=== PATIENT | male | born 2005 | race Hispanic/Latino ===

== ENCOUNTER 2025-03-05 01:33 | Emergency (ER) | payer SELFPAY ==
[~2025-03-05] VITALS: Ht 162.6 cm; Wt 68.0 kg
[2025-03-05 02:08] LABS: IMMATURE GRANULOCYTE ABSOLUTE 0.03 K/uL (0-1); NUCLEATED RED BLOOD CELLS 0.0 % (0.0-0.19); PLATELET COUNT (AUTO) 326 K/uL (130-400); RED BLOOD CELL COUNT(AUTO) 5.60 MIL/uL (4.50-6.20); RED CELL DISTRIBUTION WIDTH 12.1 % (11.0-15.5); WHITE BLOOD COUNT (AUTO) 7.2 K/uL (4.8-10.8)
[2025-03-05 02:15] LABS: CREATININE 0.9 mg/dL (0.5-1.3); GLOMERULAR FILTR. RATE CALC 126.0 mL/min (>90); GLUCOSE,RANDOM 135.0 mg/dL (70-105); SODIUM SERUM 140.0 mmol/L (136-145); UREA NITROGEN, BLOOD 8.0 mg/dL (7-18)
[2025-03-05 02:20] LABS: CREATINE KINASE, TOTAL 104.0 U/L (21-232)
--- NOTE | 2025-03-05 02:30 | ERN ---
General Chief Complaint: Chest Pain Stated Complaint: COCAINE USE, CHEST PAIN Time Seen by MD: 01:44 History of Present Illness Initial Comments Patient is a 19-year-old male who is a polysubstance abuser who earlier tonight used alcohol THC and cocaine. He is brought to the emergency room by his significant other experiencing some chest pain and decreased mental status. Allergies: Coded Allergies: No Known Allergies (Unverified Allergy, Unknown, 03/05/25) Past Medical History Past Medical History: No Pertinent History Medical History Other: Polysubstance abuse Past Surgical History: None ROS Dictation Review of systems difficult to obtain as patient is somnolent. But his chest pain has resolved by the time I got to see him and he has no other complaints. Including no chest pain and no abdominal pain. Physical Exam General Appearance comment Somnolent Orientation: (+) alert Head/Face Trauma: No Eye: bilateral eye normal inspection, bilateral eye PERRL, bilateral eye EOMI Ear, Nose, Throat: (+) hearing grossly normal, (+) normal ENT inspection Neck: (+) normal inspection, (+) full range of motion Respiratory: (+) chest non-tender, (+) lungs clear, (+) well ventilated Heart: (+) regular Vascular: (+) no edema, (+) normal peripheral pulse Gastrointestinal: (+) soft, (+) non-tender, (+) bowel sound present Gastrointestinal Comment Patient has no abdominal tenderness and no peritoneal signs. Results Laboratory and Microbiology Lab and Micro Result Laboratory Tests Test 03/05/25 01:50 03/05/25 04:17 White Blood Count 7.2 K/uL (4.8-10.8) Red Blood Count 5.60 MIL/uL (4.50-6.20) Hemoglobin 16.1 g/dL (14.0-18.0) Hematocrit 45.0 % (42-54) Mean Corpuscular Volume 80.4 fL (80-100) Mean Corpuscular Hemoglobin 28.8 pg (27.0-33.0) Mean Corpuscular Hemoglobin Concent 35.8 g/dL (32.0-36.0) Red Cell Distribution Width 12.1 % (11.0-15.5) Platelet Count 326 K/uL (130-400) Mean Platelet Volume 9.7 fL (7.5-10.5) Immature Granulocyte % (Auto) 0.4 % (0-1) Neutrophils (%) (Auto) 53.8 % (40.0-77.0) Lymphocytes (%) (Auto) 32.4 % (21.0-51.0) Monocytes (%) (Auto) 7.1 % (3.0-13.0) Eosinophils (%) (Auto) 5.7 % (0.0-8.0) Basophils (%) (Auto) 0.6 % (0.0-5.0) Neutrophils # (Auto) 3.9 K/uL (1.8-7.7) Lymphocytes # (Auto) 2.3 K/uL (1.0-4.8) Monocytes # (Auto) 0.5 K/uL (0.1-1.0) Eosinophils # (Auto) 0.41 K/uL (0.00-0.70) Basophils # (Auto) 0.04 K/uL (0.00-0.20) Absolute Immature Granulocyte (auto 0.03 K/uL (0-1) Nucleated Red Blood Cells 0.0 % (0.0-0.19) Sodium Level 140 mmol/L (136-145) Potassium Level 3.7 mmol/L (3.5-5.1) Chloride Level 104 mmol/L (101-111) Carbon Dioxide Level 28 mmol/L (21-32) Blood Urea Nitrogen 8 mg/dL (7-18) Creatinine 0.9 mg/dL (0.5-1.3) Glomerular Filtration Rate Calc 126 mL/min (>90) Random Glucose 135 mg/dL (70-105) H Total Calcium 8.9 mg/dL (8.5-10.1) Total Creatine Kinase 104 U/L (21-232) Troponin I High Sensitivity < 4 ng/L (4-75) L Serum Alcohol 137 mg/dL (0-10) H Urine Color LIGHT-YELLOW (YELLOW) Urine Appearance CLEAR (CLEAR) Urine pH 5.0 (5.0-8.0) Urine Specific [place] 1.015 (1.001-1.031) Urine Protein NEGATIVE mg/dL (NEGATIVE) Urine Glucose (UA) NEGATIVE mg/dL (NEGATIVE) Urine Ketones NEGATIVE mg/dL (NEGATIVE) Urine Occult Blood NEGATIVE (NEGATIVE) Urine Nitrate NEGATIVE (NEGATIVE) Urine Bilirubin NEGATIVE mg/dL (NEGATIVE) Urine Urobilinogen 0.2 mg/dL (0.2-1.0) Urine Leukocyte Esterase NEGATIVE Mary/uL Urine Opiates Screen NEGATIVE (NEGATIVE) Urine Barbiturates Screen NEGATIVE (NEGATIVE) Urine Phencyclidine Screen NEGATIVE (NEGATIVE) Urine Amphetamines Screen NEGATIVE (NEGATIVE) Urine Benzodiazepines Screen NEGATIVE (NEGATIVE) Urine Cocaine Screen POSITIVE (NEGATIVE) H Urine Marijuana (THC) Screen POSITIVE (NEGATIVE) H MDM Patient's polysubstance abuse. I will get a chemistry panel CBC urine tox screen UA and blood alcohol level. Depending on those results we may need to admit the patient. Patient's laboratory analysis was normal. CBC was normal. Chemistry panel normal except for a glucose of 135. UA negative.. Blood alcohol level 135. Urine tox positive for cocaine marijuana. I talked with the patient's strongly encouraging him to go to meetings and to stop drinking. He states that it always starts with him having a drink and then he starts using other intoxicants. ED Course Orders Procedure Category Date Status Time Vital Signs Per CPOE 03/05/25 Transmitted Routine 01:35 Chest 1vw RAD 03/05/25 Resulted 01:35 12 Lead Ekg Tracing- EKG 03/05/25 Logged Technical 01:35 Oxygen By Nc/Pulse Ox CPOE 03/05/25 Transmitted 01:35 Maintain Iv CPOE 03/05/25 Transmitted 01:35 Iv Insertion CPOE 03/05/25 Transmitted 01:35 Cardiac Monitoring CPOE 03/05/25 Transmitted 01:35 Pulse Oximetry With CPOE 03/05/25 Transmitted Vs And Prn 01:35 Cbc With Differential LAB 03/05/25 Complete 01:35 Activity: Br W/Brp CPOE 03/05/25 Transmitted With Assist 01:35 Creatine Kinase, Total LAB 03/05/25 Complete 01:35 Troponin I High LAB 03/05/25 Complete Sensitivity 01:35 Urinalysis Profile LAB 03/05/25 Complete 01:35 Basic Metabolic Panel LAB 03/05/25 Complete 01:35 Drug Screen Urine LAB 03/05/25 Complete 02:30 Alcohol, Blood LAB 03/05/25 Complete 02:30 Vital Signs Date Time Temp Pulse Resp B/P (MAP) Pulse Ox O2 Delivery O2 Flow Rate FiO2 03/05/25 04:20 98.4 70 15 146/73 95 Room Air* 0 21 03/05/25 01:34 97.5 84 20 139/80 99 Room Air DX & DISP Disposition: Discharge Departure Impression: Primary Impression: Polysubstance abuse Condition: Stable Additional Instructions: Please get help either by attending meetings such as alcoholics anonymous her going to a detoxification center/program. Referrals: NONE (PCP) MAIK PHILLIPS MD Mar 05, 2025 02:30
--- NOTE | 2025-03-05 02:50 | NUR ---
UA CUP PROVIDED
--- NOTE | 2025-03-05 03:14 | NUR ---
PT SITTING IN LOBBY, IN FRONT OF TRIAGE 1 WITH FAMILY, LAUGHING AND INTERATING WELL
--- NOTE | 2025-03-05 03:18 | HMCIMG ---
EXAM: CR Chest, 1 view. CLINICAL HISTORY: Chest pain. COMPARISON: None. FINDINGS: The lungs show no infiltrate or other acute findings. No pleural effusion or pneumothorax. The cardiomediastinal silhouette is within normal limits. No acute osseous abnormality. IMPRESSION: No acute cardiopulmonary pathology is evident. /[place]
--- NOTE | 2025-03-05 04:20 | NUR ---
PT CARE ASSUMED AT THIS TIME
[2025-03-05 04:27] LABS: APPEARANCE,URINE CLEAR (CLEAR); GLUCOSE, URINE (UA) NEGATIVE (NEGATIVE); LEUKOCYTE ESTERASE ,URINE NEGATIVE Leu/uL (NEGATIVE); NITRATE,URINE NEGATIVE (NEGATIVE); OCCULT BLOOD,URINE NEGATIVE (NEGATIVE)
[2025-03-05 04:29] LABS: ADD UA MICROSCOPIC NO
[2025-03-05 04:34] LABS: AMPHET/METH SCREEN,URINE NEGATIVE (NEGATIVE); BARBITURATE SCREEN, URINE NEGATIVE (NEGATIVE); CANNABINOID SCREEN,URINE POSITIVE (NEGATIVE); COCAINE SCREEN,URINE POSITIVE (NEGATIVE)
[2025-03-05 04:53] VITALS: BP 122/71; PULSE 88; RESP 15; TEMP 98.2; O2SAT 98
--- NOTE | 2025-03-05 07:24 | EKG ---
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
== END 2025-03-05 04:59 | disposition home or self-care (01) ==
LOC: EDH 01:33
DX: F19.10 Other psychoactive substance abuse, uncomplicated (principal)
CPT/HCPCS: 36415; 71045; 80048; 80305; 81003; 82550; 84484; 85025; 93005; 99285